=== PATIENT | female | born 1970 | race Caucasian/White ===

== ENCOUNTER 2019-03-26 10:32 | Emergency (ER) | payer MEDICARE, MEDICAID ==
[~2019-03-26] VITALS: Ht 157.5 cm; Wt 99.6 kg
[2019-03-26 12:11] VITALS: BP 129/80
== END 2019-03-26 12:18 | disposition home or self-care (01) ==
LOC: ED 11:58
DX: J03.00 Acute streptococcal tonsillitis, unspecified (principal); G43.909 Migraine, unspecified, not intractable, without status migrainosus; F17.200 Nicotine dependence, unspecified, uncomplicated
CPT/HCPCS: 99283